=== PATIENT | female | born 1985 | race Caucasian/White ===

== ENCOUNTER 2018-01-22 14:43 | Emergency (ER) | payer MEDICARE, MEDICAID ==
[2018-01-22] MEDS ORDERED: 0.9 % SODIUM CHLORIDE 1,000 ML BAG IV ONE (17:35)
--- NOTE | 2018-01-22 18:18 | Emergency Department Record ---
History of Present Illness - General Chief complaint: Female Urogenital Problem Stated complaint: ABDOMINAL CRAMPING Time Seen by Provider: 01/22/18 18:12 Source: Patient, RN notes reviewed Mode of Arrival: Ambulatory - History of Present Illness Initial comments: cramping and lower abd pain and was told by her DR. she had ovarian cyst and the US was going to be repeated in february and she said she was having to much cramping and wanted to ave her repeat US now. She is not gerardo anything for pain today. Patient denies and on BCP and normal periods. Onset/Timin -: Month(s) Location: Suprapubic Quality: Cramping Consistency: Intermittent Improves with: None Worsens with: None Patient : No Associated Symptoms: Denies other symptoms - Related Data Home Medications Medication Instructions Recorded Confirmed Last Taken Amlodipine Besylate [Norvasc] 5 mg PO DAILY 01/22/18 01/22/18 01/22/18 Desogestrel-Ethinyl Estradiol 1 each PO DAILY 01/22/18 01/22/18 01/22/18 [Apri 28 Day Tablet] Metoprolol Tartrate [Lopressor] 100 mg PO DAILY 01/22/18 01/22/18 01/22/18 Previous Rx's Medication Instructions Recorded Naproxen [Naprosyn] 500 mg PO Q12H #20 tab. 01/22/18 Allergies Allergy/AdvReac Type Severity Reaction Status Date / Time morphine Allergy HIVES Verified 01/22/18 17:34 Sulfa (Sulfonamide Allergy FEVER Verified 01/22/18 17:34 Antibiotics) gemfibrozil [From Lopid] AdvReac ABDOMINAL Verified 01/22/18 17:34 PAIN tramadol [From Ultram] AdvReac NAUSEA AND Verified 01/22/18 17:34 VOMITING Travel Screening - Travel/Exposure Within Last 30 Days Have you traveled within the last 30 days?: No - Travel/Exposure Within Last Year Have you traveled outside the [place] in the last year?: No - Additonal Travel Details Have you been exposed to anyone with a communicable illness?: No - Travel Symptoms Symptom Screening: None Review of Systems Reviewed: No additional complaints except as noted below Constitutional: Reports: As per HPI. Denies: Chills, Fever, Malaise, Night sweats, Weakness, Weight change Eyes: Reports: As per HPI. Denies: Eye discharge, Eye pain, Photophobia, Vision change ENT: Reports: As per HPI. Denies: Congestion, Dental pain, Ear pain, Epistaxis , Hearing loss, Throat pain Respiratory: Reports: As per HPI. Denies: Cough, Dyspnea, Hemoptysis, Stridor, Wheezes Cardiovascular: Reports: As per HPI. Denies: Arrhythmia, Chest pain, Dyspnea on exertion, Edema, Murmurs, Orthopnea, Palpitations, Paroxysmal nocturnal dyspnea, Rheumatic Fever, Syncope Endocrine: Reports: As per HPI. Denies: Fatigue, Heat or cold intolerance, Polydipsia, Polyuria Gastrointestinal: Reports: As per HPI. Denies: Abdominal pain, Constipation, Diarrhea, Hematemesis, Hematochezia, Melena, Nausea, Vomiting Genitourinary: Reports: As per HPI. Denies: Abnormal menses, Discharge, Dyspareunia, Dysuria, Frequency, Hematuria, Incontinence, Retention, Urgency Musculoskeletal: Reports: As per HPI. Denies: Arthralgia, Back pain, Gout, Joint swelling, Myalgia, Neck pain Skin: Reports: As per HPI. Denies: Bruising, Change in color, Change in hair/ nails, Lesions, Pruritus, Rash Neurological: Reports: As per HPI. Denies: Abnormal gait, Confusion, Headache, Numbness, Paresthesias, Seizure, Tingling, Tremors, Vertigo, Weakness Psychiatric: Reports: As per HPI. Denies: Anxiety, Auditory hallucinations, Depression, Homicidal thoughts, Suicidal thoughts, Visual hallucinations Hematological/Lymphatic: Reports: As per HPI. Denies: Anemia, Blood Clots, Easy bleeding, Easy bruising, Swollen glands Past Medical History - SOCIAL HISTORY Smoking Status: Never smoker Alcohol Use: None Drug Use: None - RESPIRATORY Hx Respiratory Disorders: No - CARDIOVASCULAR Hx Cardio Disorders: Yes Hx Hypertension: Yes - NEURO Hx Neuro Disorders: No - GI Hx GI Disorders: No - Hx Genitourinary Disorders: No - ENDOCRINE Hx Endocrine Disorders: Yes Hx Diabetes: Yes - MUSCULOSKELETAL Hx Musculoskeletal Disorders: No - PSYCH Hx Psych Problems: No - HEMATOLOGY/ONCOLOGY Hx Hematology/Oncology Disorders: No Family Medical History Any Significant Family History?: No Physical Exam - General General Appearance: Alert, Oriented x3, Cooperative, No acute distress - Head Head exam: Normal inspection - Eye Eye exam: Normal appearance, PERRL Pupils: Normal accommodation - ENT ENT exam: Normal exam, Mucous membranes moist, Normal external ear exam, Normal orophraynx, TM's normal bilaterally Ear exam: Normal external inspection. negative: External canal tenderness Nasal Exam: Normal inspection. negative: Discharge, Sinus tenderness Mouth exam: Normal external inspection, Tongue normal Teeth exam: Normal inspection. negative: Dental caries Throat exam: Normal inspection. negative: Tonsillar erythema, Tonsillar exudate - Neck Neck exam: Normal inspection, Full ROM. negative: Tenderness - Respiratory Respiratory exam: Normal lung sounds bilaterally. negative: Respiratory distress - Cardiovascular Cardiovascular Exam: Regular rate, Normal rhythm, Normal heart sounds - GI/Abdominal GI/Abdominal exam: Soft, Normal bowel sounds, Tenderness (bilateral lower abd pain, no rebound or rigidity.) - Rectal Rectal exam: Deferred - exam: Deferred - Extremities Extremities exam: Normal inspection, Full ROM, Normal capillary refill. negative: Tenderness - Back Back exam: Reports: Normal inspection, Full ROM. Denies: Muscle spasm, Rash noted, Tenderness - Neurological Neurological exam: Alert, Normal gait, Oriented X3, Reflexes normal - Psychiatric Psychiatric exam: Normal affect, Normal mood - Skin Skin exam: Dry, Intact, Normal color, Warm Course Vital Signs 01/22/18 17:37 Temperature 98.5 F Pulse Rate 98 H Respiratory 18 Rate Blood Pressure 150/88 Pulse Ox 99 Medical Decision Making - Data Complexity MDM Data: X-Ray Ordered and/or Reviewed (ovarian cyst 4 cm complex) - Lab Data Result diagrams: 01/22/18 17:35 01/22/18 17:35 Disposition Clinical Impression: Cystic disease of ovary Abdominal pain Qualifiers: Abdominal location: lower abdomen, unspecified Qualified Code(s): R10.30 - Lower abdominal pain, unspecified Disposition: Home, Self-Care Condition: (2) Stable Instructions: Abdominal Pain (ED) Additional Instructions: follow up with her in one week naprosyn 500 mg twice a day Prescriptions: Naproxen [Naprosyn] 500 mg PO Q12H #20 tab.dr Forms: Patient Portal Access Time of Disposition: 18:21 Quality - Quality Measures Quality Measures: N/A - Blood Pressure Screening Does Patient Have Any of the Following: No Blood Pressure Classification: Pre-Hypertensive BP Reading Systolic Measurement: 150 Diastolic Measurement: 88 Screening for High Blood Pressure: < Pre-Hypertensive BP, F/U Documented > [ [id number]] Pre-Hypertensive Follow-up Interventions: Referral to alternative/primary care provider.
[2018-01-22 18:55] LABS: URINE APPEARANCE CLEAR; URINE BILIRUBIN NEGATIVE (NEGATIVE); URINE BLOOD SMALL (NEGATIVE); URINE COLOR YELLOW; URINE KETONE 15 mg/dL (NEGATIVE); URINE LEUKOCYTE ESTERASE NEGATIVE (NEGATIVE); URINE NITRITE NEGATIVE (NEGATIVE); URINE PROTEIN NEGATIVE (NEGATIVE); URINE UROBILINOGEN 0.2 E.U./dL (0.20 - 1.00)
[2018-01-22 19:04] LABS: HCG,QUALITATIVE URINE NEGATIVE (NEGATIVE); URINE BACTERIA NONE SEEN; URINE WBC 0 - 2 (0-2/hpf)
[2018-01-22 19:12] LABS: BASO % 0.2 % (0-6); EOS % 0.9 % (0-6); GRAN % 54.4 % (47-80); HEMATOCRIT 40.1 % (35.0-47.0); HEMOGLOBIN 13.4 gm/dl (11.6-16.0); LYMPH % 37.8 % (16-45); MEAN CELL VOLUME 87.6 fl (81-97); MEAN CORPUSCULAR HEMOGLOBIN 29.3 pg (27-33); MEAN CORPUSCULAR HGB CONC 33.4 g/dl (32-36); MEAN PLATELET VOLUME 10.1 fl (7.4-10.4); MONO % 6.7 % (0-9); PLATELET COUNT 267 K/uL (130-400); RED BLOOD COUNT 4.58 M/uL (3.80-5.40); RED CELL DISTRIBUTION WIDTH 13.9 % (11.5-14.5); WHITE BLOOD COUNT W/O DIFF 9.7 K/uL (4.2-12.2)
[2018-01-22 19:22] LABS: BLOOD UREA NITROGEN 12 mg/dL (6-20); CREATININE 0.6 mg/dL (0.5-0.9); EST GLOMERULAR FILTRATION RATE > 60 mL/min; TOTAL PROTEIN 6.9 g/dL (6.6-8.7)
[2018-01-22 19:24] LABS: GLUCOSE,RANDOM 133 mg/dL (74-109)
[2018-01-22 19:27] LABS: ALBUMIN 4.1 g/dL (4.0-5.0); ALKALINE PHOSPHATASE 53 U/L (35-104); ALT/SGPT 15 U/L (<33); AST/SGOT 17 U/L (10.0-35.0); BILIRUBIN,DIRECT < 0.2 mg/dL (0-0.3)
--- NOTE | 2018-01-23 10:55 | ULTRASOUND REPORT ---
EXAM: PELVIC ULTRASOUND WITH TRANSVAGINAL HISTORY: OVARIAN CYST AND ABDOMINAL PAIN. TECHNIQUE: Sonographic evaluation of the pelvis was performed using transabdominal and transvaginal probes. Beck scale, color Doppler and Duplex Doppler imaging were utilized. Comparison: None. FINDINGS: TRANSABDOMINAL PELVIC ULTRASOUND: The uterus is anteverted in position and mildly anteflexed. The uterus measures 9.4 x 4.9 x 5.6 cm. The myometrium appears grossly normal. The endometrium is poorly visualized transabdominally and measures approximately 8 mm in thickness. There are no abnormal endometrial fluid collections. The right ovary is faintly visualized and appears normal measuring 3 x 1.9 x 3.1 cm. The left ovary measures 2.8 x 4.7 x 2.8 cm and contains a mildly complex cyst measuring approximately 4.2 x 3.1 cm. There is no visible free fluid within the pelvis. TRANSVAGINAL PELVIC ULTRASOUND: Small nabothian cysts are present within the cervix. The endometrial stripe measures 8 mm in thickness. There is a small amount of fluid within the endocervical canal. There is a focal echogenic area along the endometrium on the left. This is mildly heterogeneous and likely represents a submucosal fibroid measuring 1.6 cm in maximal diameter. No other focal abnormalities are identified. The right ovary is normal in appearance and size measuring 2.1 x 2.1 x 3.4 cm. The left ovary measures 3.1 x 4.7 x 5.9 cm and contains a complex cyst measuring 3.9 x 3.5 x 4.2 cm. There are low level internal echoes. There is no free fluid within the pelvis. Duplex Doppler ultrasound was performed to assess for ovarian torsion. Color Doppler images show symmetric blood flow within the ovaries. Intraovarian spectral venous and arterial waveforms are symmetrical and demonstrate unremarkable uncorrected velocities. There is no ovarian torsion. IMPRESSION: 1. 3.9 X 3.5 X 4.2 CM MILDLY COMPLEX CYST WITHIN THE LEFT OVARY. A FOLLOW-UP ULTRASOUND IS RECOMMENDED IN TWO TO THREE MONTHS TO CONFIRM RESOLUTION. 2. NORMAL RIGHT OVARY. 3. PROBABLE SUBMUCOSAL FIBROID ALONG THE LEFT ENDOMETRIUM MEASURING 1.6 CM IN MAXIMAL DIAMETER. JOB NUMBER: [id number] MTDD
== END 2018-01-22 19:34 | disposition home or self-care (01) ==
LOC: ER 14:43
DX: N83.292 Other ovarian cyst, left side (principal); R10.30 Lower abdominal pain, unspecified; I10 Essential (primary) hypertension
CPT/HCPCS: 76830; 76856; 80048; 80076; 81001; 81025; 85025; 99284; J7030